=== PATIENT | male | born 1955 | race Two or more races ===

== ENCOUNTER 2023-06-14 18:49 | Outpatient (REF) | payer MEDICARE, SELFPAY | END 2023-06-14 18:50 | disposition home or self-care (01) | LOC: HO.HHCLNP 18:49 | PROVIDERS: Visit Provider Family Medicine | DX: R31.0 Gross hematuria (principal) | CPT/HCPCS: 87086 ==

== ENCOUNTER 2023-08-03 14:49 | Outpatient (REF) | payer MEDICARE, SELFPAY ==
--- NOTE | ~2023-08-03 | US_ITS ---
EXAMINATION: US RETROPERITONEAL COMPLETE (RENAL) CLINICAL INFORMATION: Gross hematuria. COMPARISON: None available. TECHNIQUE: Real-time imaging of the kidneys and bladder. FINDINGS: RIGHT KIDNEY: 10.7 x 5.8 x 6.0 cm (SAG x AP x TRV). The kidney is normal in size, contour, and echogenicity. Renal cortical thickness is normal. No calculi or focal parenchymal lesions. No hydronephrosis. LEFT KIDNEY: 11.1 x 6.0 x 6.2 cm (SAG x AP x TRV). The kidney is normal in size, contour, and echogenicity. Renal cortical thickness is normal. No renal calculi or focal parenchymal lesions. Upper pole caliectasis. BLADDER: Multiple bladder diverticula. Prevoid volume is 445 mL. Post void residual is 239 mL.. Prostate: 3.9 x 3.3 x 4.8 cm with multiple calcifications. US/US retroperitoneal comp IMPRESSION: 1. Upper pole caliectasis in the left kidney. 2. Multiple bladder diverticula. 3. Large post void residual.
== END 2023-08-03 14:50 | disposition home or self-care (01) ==
LOC: HO.US 14:49
PROVIDERS: PCP Family Medicine; Visit Provider Family Medicine
DX: R31.0 Gross hematuria (principal)
CPT/HCPCS: 76770

== ENCOUNTER 2023-08-09 14:07 | Outpatient (AMB) | payer MEDICARE, SELFPAY ==
--- NOTE | 2023-08-09 14:35 | MHC.OFFVIS ---
Intake Intake Visit Reasons: Gross Hematuria Intake Note: nEW patient presents today to establish treatment for: Gross Hematuria Meds- None Allergies to Antibiotic- No Known Allergies Blood Thinner- None Patient stated he usually urinates normal, however some days he has flare ups/symptoms or urgency, and sometimes he urinate but other times he urinates only a little bit. He stated he is a non smoker. Patient does not take medications, so he stated he does not have a specific pharmacy. 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 Puri. He presents to the office today as a new patient for gross hematuria. He discusses having followed up with his PCP at which time recommendations were made for urology referral for further assessment evaluation. In review of patient's chart it appears PCP performed POC UA in office in noted positive for blood, leukocytes, and nitrates. He was treated with antibiotic therapy however urine culture returned negative. He reports gross hematuria has since subsided. He reports a previous history of nephrolithiasis approximately 16 years ago. However never requiring surgical intervention. When asked he does report urinary hesitancy he otherwise denies urinary urgency, urinary frequency, incontinence, nocturia, hematuria, dysuria, foul smelling urine, changes to urinary stream, flank pain, fever, and or chills. When asked he denies any previous history of smoking and or known workplace chemical exposure. In office urinalysis results reviewed with the patient today. 1+ microscopic hematuria noted otherwise within normal limits. Discussed reasons for blood in the urine may include but are not limited to kidney stones, cancer in the urinary tract, BPH, kidney stone disease or inflammatory conditions of the urinary tract. Discussed further workup of gross hematuria to include CT urogram, urine cytology, and in office cystoscopy. [facility] Social History (Updated 08/09/23 @ 14:54 by Aimee Cole CMA) Alcohol intake: never Patient Tobacco Use Status: Never used Tobacco Review of Systems Const All systems reviewed & are unremarkable except as noted in HPI and below Physical Exam Const General: cooperative, healthy appearing, comfortable, no acute distress, well developed, alert and awake Orientation/consciousness: patient oriented x3 Limitations: no limitations HEENT Head: Yes normal to inspection, Yes normocephalic and Yes atraumatic Ears: hearing grossly normal bilaterally Eyes General: appearance normal, both eyes and all related structures Neck Neck: Yes normal visual inspection and Yes trachea midline Chest Chest palpation & inspection: normal inspection of the chest Resp Effort & Inspection: normal respiratory effort and able to speak in complete sentences Cardio Rate: regular rate GI Inspection: Yes normal to inspection General: Yes no CVA tenderness Back/Spine/Pelvis Back: no CVA tenderness Skin General skin exam: no rashes or lesions noted Neuro General: patient oriented x3 Extrem General: Yes normal to inspection Psych Appearance: grossly normal and well kempt Mental Status: mental status grossly normal Speech and movement: Normal speech and movement present and Clear speech present Affect: normal affect Attitude: cooperative Thought process: Normal thought process present Thought content: Normal thought content present Insight: Fair insight present (Psych) Judgement: Fair judgement present (Psych) Results AMB Urinalysis, Automated UA Leukoctes 0 Geo/uL Last Edit by Aimee Cole [facility] on 08/09/23 14:51 UA Nitrite Negative Last Edit by Aimee Cole [facility] on 08/09/23 14:51 UA Urobilinogen 0.2 mg/dL Last Edit by Aimee Cole [facility] on 08/09/23 14:51 UA Protein 0 mg/dL Last Edit by Aimee Cole [facility] on 08/09/23 14:51 UA pH 6.0 Last Edit by Aimee Cole [facility] on 08/09/23 14:51 UA Blood 25 Yoel/uL Last Edit by Aimee Cole [facility] on 08/09/23 14:51 UA Specific Morgan 1.015 Last Edit by Aimee Cole [facility] on 08/09/23 14:51 UA Ketone Negative Last Edit by Aimee Cole [facility] on 08/09/23 14:51 UA Bilirubin 0 mg/dL Last Edit by Aimee Cole [facility] on 08/09/23 14:51 UA Glucose 0 mg/dL Last Edit by Aimee Cole [facility] on 08/09/23 14:51 Results Reviewed Results Reviewed: Laboratory Last Values Urine pH (Auto) 6.0 08/09/23 14:50 Specific Morgan (Auto) 1.015 08/09/23 14:50 Urine Protein (Auto) 0 mg/dL 08/09/23 14:50 Glucose (UA)(Auto) 0 mg/dL 08/09/23 14:50 Urine Ketones (Auto) Negative 08/09/23 14:50 Urine Blood (Auto) 25 Yoel/uL 08/09/23 14:50 Urine Nitrite (Auto) Negative 08/09/23 14:50 Urine Bilirubin (Auto) 0 mg/dL 08/09/23 14:50 Urine Urobilinogen (Auto) 0.2 mg/dL 08/09/23 14:50 Leukocyte Esterase (Auto) 0 Geo/uL 08/09/23 14:50 Assessment & Plan Assessment & Plan (1) Gross hematuria: Code(s): R31.0 - Gross hematuria Plan In office urinalysis results reviewed with the patient today; as noted above; will send for urine cytology. Discussed at length potential causes of gross hematuria. Discussed further workup with imaging, cytology, and in office cystoscopy versus surveillance monitoring; risks and benefits of these interventions were discussed at length. Will obtain CT urogram for further assessment evaluation. BUN and creatinine ordered for imaging. Discussed trial of medication for urinary hesitancy; however patient declines at this time. Discussed lifestyle modifications such as sitting to void to assist with relaxing pelvis/bladder and potentially aiding in improvement in urinary hesitancy. Discussed, educated, and stressed the importance of drinking plenty of water daily. Follow-up in office cystoscopy with imaging and labs to be completed prior; or sooner with any issues, concerns, and or questions. Orders: Orders AMB Urinalysis Automated Today R33.9 - Retention of urine, unspecified Urine Cytology Today R31.0 - Gross hematuria Blood Urea Nitrogen Today R31.0 - Gross hematuria Creatinine Today R31.0 - Gross hematuria Prostate Specific Antigen Today N40.1 - Benign prostatic hyperplasia with lower urinary tract symptoms, R39.11 - Hesitancy of micturition CT urogram Today R31.0 - Gross hematuria Patient Instructions: The patient had an opportunity to ask questions regarding the treatment plan. All questions were answered. Physical exam, labs, and imaging were discussed and reviewed in detail. As well as risks, benefits, and discussion of treatment choices. No major barriers to understanding were identified. The patient expressed understanding and agreement with the above treatment plan. The patient was made aware they should contact our office by phone for worsening of their current condition, the appearance of new symptoms, or with any questions or concerns. Compliance is encouraged with any medications and follow up testing that is ordered. It is a privilege to be allowed the opportunity to participate in? your urological care.? Again, if you have any questions or concerns If you have any questions or concerns please do not hesitate to contact me. The office is [phone]. This note is constructed using voice recognition software. While every effort has been made to ensure accuracy instructional technology coach errors may have been included. Yours sincerely, DIGNA Harding Coding Level of Care Code New Pt Level 4 (25837) Diagnoses Gross hematuria R31.0 Time Spent (min) 35
== END 2023-08-09 15:17 | disposition home or self-care (01) ==
PROVIDERS: PCP Family Medicine; Visit Provider Nurse Practitioner Family
DX: R31.0 Gross hematuria (principal)
CPT/HCPCS: 99204

== ENCOUNTER 2023-08-09 14:07 | Outpatient (REF) | payer MEDICARE, SELFPAY ==
[2023-08-09 17:08] LABS: Urine Cytology See Pathology rpt
== END 2023-08-09 14:08 | disposition home or self-care (01) ==
LOC: HO.LAB 14:07
PROVIDERS: PCP Family Medicine; Visit Provider Nurse Practitioner Family
DX: R31.0 Gross hematuria (principal)
CPT/HCPCS: 81003; 88112; 99202

== ENCOUNTER 2023-08-31 12:00 | Emergency (ER) | payer MEDICARE, SELFPAY ==
--- NOTE | ~2023-08-31 | CT_ITS ---
EXAMINATION: CTA OF THE HEAD AND NECK CLINICAL INFORMATION: Headache and blurred vision. COMPARISON: None available. TECHNIQUE: Test bolus sequences followed by intravenous administration 70 mL of Omnipaque 350. Helical imaging was performed in the axial plane from the mediastinum to the skull vertex. Delayed postcontrast imaging of the head was also performed. The data was processed at the special procedures technologist's workstation for generation of MIP sequences. Three-dimensional volume rendered reformatted images were also generated at an offline 3-D workstation. Stenoses are assessed in accordance with NASCET criteria unless otherwise indicated. This CT examination was performed using dose optimization techniques as appropriate, variously including the following: *Automated exposure control *Adjustment of mA and/or kV according to patient size (this includes techniques or standardized protocols for targeted exams where dose is matched to indication/reason for exam; i.e. extremities or head) *Use of iterative reconstruction technique DLP: 2102 mGy-cm. FINDINGS: CT head: There is no evidence of acute intracranial hemorrhage or territorial infarction. There is no loss of mccallum to white matter differentiation. No abnormal mass effect or midline shift is seen. No extra-axial fluid collections are identified. There is no abnormal enhancement. The ventricles are normal in size. There is no abnormal attenuation within the brain parenchyma. The osseous structures and soft tissues are normal. The mastoid air cells and visualized portions of the paranasal sinuses are well aerated. CTA neck: The imaged aortic arch and origins of the great vessels are widely patent. The common carotid arteries are patent with very mild atheromatous changes. The carotid bifurcations are relatively normal. The cervical internal carotid arteries are normal. The vertebral arteries opacify normally and are of normal caliber. There is a large 1.3 x 1.6 cm calculus surrounded by mild amount of fluid attenuation in the chronically atrophied left submandibular gland. Surrounding fluid density may reflect chronic ductal obstructive changes. No surrounding soft tissue inflammatory changes are visible. No cervical adenopathy visible. The imaged portions of the lungs are clear with mild emphysematous changes. Moderate to severe degenerative disc disease evident at the C6-C7 level. Multilevel facet arthropathy present. Mild rightward curvature of the cervical spine noted. There are severe degenerative changes of the temporomandibular joints. A small loose body is also visible posterior to the condylar head in the right mandibular fossa. CTA head: The intradural vertebral arteries and basilar artery are normal. The posterior cerebral arteries are widely patent. The internal carotid arteries are of normal caliber. The VIVIENNE and MCA vascular complexes bilaterally are normal. The venous sinuses opacify normally. CT/CT angio head neck IMPRESSION: No hemodynamically significant stenosis or vascular occlusion in the cervical or intracranial vessels at the level of the [place] of [place]. Large 1.3 x 1.6 cm calculus with suspected chronic ductal dilatation in the atrophied left submandibular gland, without surrounding acute inflammatory changes. 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 Imaging findings reported to Dr. Baeza at 2:15 PM on 08/31/2023.
--- NOTE | 2023-08-31 12:05 | ED.HA ---
HPI - Headache General Chief Complaint: Stroke Stated Complaint: HEADACHE BLURRED VISION Time Seen by Provider: 08/31/23 12:04 Source: patient Mode of arrival: EMS History of Present Illness HPI Narrative: 68-year-old male who is not on any prescription medications, no blood thinners, no recent falls, no recent MVC who had acute onset of headache and upper abdominal discomfort with blurred vision that started at 01:50 this morning and patient states it woke him up from sleep. Patient denies any gait instability and actually drove himself to 2 different locations for evaluation. Patient also describes some nausea and vomiting. Related Data Previous Rx's ?Medication ?Instructions ?Recorded hydrochlorothiazide 25 mg tablet 25 mg PO DAILY #30 tabs 08/31/23 Allergies Allergy/AdvReac Type Severity Reaction Status Date / Time NKDA Allergy Unknown Unknown Uncoded 08/31/23 12:13 Review of Systems Review of Systems: Pertinent positives and negatives as stated in HPI PMFSH Past Medical History Source: nursing notes reviewed Social History Social History Alcohol intake: never Patient Tobacco Use Status: Never used Tobacco Advance Directives: No Advance Directives Information Provided: Yes Do you have a plan to hurt others: No Plan Physical Exam Vital Signs: Vital Signs: Last Vital Signs Temp 98 F 08/31/23 14:09 Pulse 58 08/31/23 14:09 Resp 18 08/31/23 14:09 BP 167/89 H 08/31/23 13:23 Pulse Ox 99 08/31/23 13:23 O2 Del Method Room Air 08/31/23 14:09 BMI result Body Mass Index 24.0 VITAL SIGNS: Reviewed. GENERAL: Well developed, well nourished, in no acute distress. HEAD: Normocephalic/atraumatic EYES: PERRLA, EOMI EARS: Ext canals without abnormality NOSE: Nares patent bilateral OROPHARYNX: no oral lesions noted, posterior pharynx clear NECK: Supple, no adenopathy LUNGS: Normal breath sounds. No adventitious sounds or accessory muscle use. SpO2<100> CARDIOVASCULAR: Regular rate and rhythm without noted murmurs ABDOMEN: Soft, non-tender, non-distended with bowel sounds. MUSCULOSKELETAL: No tenderness, deformities, or effusions noted on gross inspection. EXTREMITIES: No cyanosis, clubbing or edema. SKIN: Inspection of the skin reveals no rashes NEUROLOGIC: Alert and oriented x 4. Strength and sensation to light touch were grossly intact x 4, no facial asymmetry, no pronator drift, cranial nerves 2-12 are grossly intact. NIH Stroke Scale Internal: Initial- Upon Arrival Level of Consciousness: Alert Level of Consciousness Questions: Answers both questions correctly Level of Consciousness Commands: Performs both tasks correctly Best Gaze: Normal Visual: No visual loss Facial Palsy: Normal Motor Arm (Right): No drift Motor Arm (Left): No drift Motor Leg (Right): No drift Motor Leg (Left): No drift Limb Ataxia: Absent Sensory: Normal Best Language: No aphasia Dysarthia: Normal Extinction and Inattention: No abnormality Score: 0 Medications Administered Discontinued Medications Generic Name Dose Route Start Last Admin Trade Name Freq PRN Reason Stop Dose Admin Acetaminophen 975 mg 08/31/23 12:48 08/31/23 13:20 Acetaminophen 325 Mg Tablet PO 08/31/23 12:49 975 mg ONCE ONE Administration Iohexol 70 ml 08/31/23 12:35 08/31/23 12:36 Iohexol 350 Mg/Ml 100 Ml Infus..Btl IV 08/31/23 12:36 70 ml ONCE ONE Administration Ondansetron HCl 4 mg 08/31/23 12:48 08/31/23 13:20 Ondansetron Hcl 4 Mg/2 Ml Vial IVPUSH 08/31/23 12:49 4 mg ONCE ONE Administration Medical Decision Making Medical Decision Making MDM Narrative: 68-year-old male with history and clinical presentation, DDX: Intracranial hemorrhage, no focal findings to suggest acute stroke, symptoms started at 01:50 so outside the window for TNK, migraine/generalized headache, possible hypertensive urgency, food poisoning (patient states he ate some food that was questionable last night) I reviewed all investigations and hematologic indices are negative for leukocytosis/anemia/thrombocytopenia. Coagulation studies are within normal limits. Chemistry indices do not demonstrate MARISOL/electrolyte or liver enzyme derangements and high sensitivity troponin is undetectable without acute findings on EKG although there is no corresponding EKG for comparison. Patient was offered Zofran and Tylenol in states that he is feeling much better, on ambulation he ambulates with a steady gait, no complaints of dizziness/headache and blurry vision has completely resolved. 1411: Dr. LedbetterReggie melgar Radiology, called with negative findings on CT angio of head and neck. Patient's blood pressure is completely resolved without any intervention medications and reports feeling back at baseline. Patient is otherwise discharged on hydrochlorothiazide 25 mg and instructed to follow-up with his primary care doctor. He is also provided with strict return precautions. Differential Diagnosis Differential Diagnoses: The differential diagnosis associated with the presentation includes Please see the discussion above Admission/Observation Consideration of admission/observation: Escalation of care including admission/observation considered Please see the discussion above Lab Data MDM Lab Attestation statement: I reviewed the patient's lab results. Please see the discussion above 08/31/23 12:21 08/31/23 12:21 Labs: Lab Results 08/31/23 Range/Units 12:21 WBC 9.5 (4.8-10.8) X10*3/uL RBC 4.99 (4.60-5.80) X10*6/uL Hgb 14.8 (14.0-18.0) g/dl Hct 43.8 (42.0-52.0) % MCV 87.8 (80.0-98.0) fL MCH 29.7 (27.0-33.0) pg MCHC 33.8 (31.0-36.0) g/dl RDW 14.2 (11.0-16.0) % Plt Count 212 (160-400) X10*3/uL MPV 10.2 (9.4-12.4) fL Immature Gran % (Auto) 0.2 (0.0-0.4) % Neut % (Auto) 88.8 H (45-73) % Lymph % (Auto) 7.6 L (20-40) % [place] % (Auto) 3.3 (2-11) % Eos % (Auto) 0.0 (0-4) % Baso % (Auto) 0.1 (0-2) % Lymph # (Auto) 0.7 L (1.2-4.9) X10*3/uL [place] # (Auto) 0.3 (0.1-1.2) X10*3/uL Eos # (Auto) 0.0 (0.0-0.4) X10*3/uL Baso # (Auto) 0.0 (0.0-0.2) X10*3/uL Abs Immat Gran (auto) 0.02 (0.00-0.03) X10*3/uL Absolute Neuts (auto) 8.4 H (2.0-8.3) x10*3/uL Absolute Nucleated RBC 0.000 (0.0-0.012) X10*3/uL Nucleated RBC % (auto) 0.0 (0.0-0.2) /100WBC PT 11.5 (11.1-13.3) SEC INR 0.9 (0.9-1.1) Sodium 135 (135-145) mmol/L Potassium 4.8 (3.3-5.1) mmol/L Chloride 102 (96-108) mmol/L Carbon Dioxide 25 (22-29) mmol/L Anion Gap 13 (12-20) BUN 17 H (9-16) mg/dL Creatinine 0.80 (0.5-1.4) mg/dL Estim Creat Clear Calc 87.8 Estimated GFR > 60 Random Glucose 121 H (60-115) mg/dL Calcium 9.5 (8.4-10.2) mg/dL Total Bilirubin 0.4 (0.0-1.0) mg/dL AST 21 (5-37) U/L ALT 16 (0-40) U/L Alkaline Phosphatase 80 (39-117) U/L Troponin I High Sens < 2.7 (<3.5-35.0) ng/L Total Protein 8.0 (6.5-8.0) g/dL Albumin 4.3 (3.5-5.0) g/dL Independent Interpretation I performed an independent interpretation of an: EKG Interpretation: Sinus rhythm, bradycardia at 56, no STEMI, however findings in lateral leads consistent with LVH, no EKG for comparison, [place]/QRS/QTC is within normal limits. Radiology Impression Discussion of test interpretation with radiology: I have reviewed the radiologist's reading. Radiologist Impression: Please see the discussion above Critical Care Time Critical Care Time Critical Care Time: Yes Total Critical Care Time: 30 Attestation: I personally attest to this time spent taking care of the patient. Discharge Plan Discharge Clinical Impression: Hypertensive crisis Patient Disposition: Home, Self-Care Instructions: Hypertensive Crisis (ED) Additional Instructions: Please return to the emergency room should you experience any return of your headache/blurred vision, please take the medication as prescribed and follow-up with your primary care doctor in the next 1-2 days. Prescriptions: New hydrochlorothiazide 25 mg tablet 25 mg PO DAILY Qty: 30 0RF Referrals: Jarrett Puri MD [Primary Care Provider] - Print Language: Uzbek
--- NOTE | 2023-08-31 12:08 | ECG_ITS ---
Test Reason : htn Blood Pressure : / mmHG Vent. Rate : 056 BPM Atrial Rate : 056 BPM P-R Int : 150 ms QRS Dur : 098 ms QT Int : 440 ms P-R-T Axes : -84 -19 034 degrees QTc Int : 424 ms Unusual P axis, possible ectopic atrial bradycardia Moderate voltage criteria for LVH, may be normal variant ( R in aVL , [place] product ) Abnormal ECG No previous ECGs available Referred By: Acacia Baeza Electronically Signed By:RE MURILLO
[2023-08-31 12:10] VITALS: BP 178/98; BP 183/87; PULSE 56; PULSE 58; RESP 18; TEMP 36.7; O2SAT 100; O2SAT 98; BMI 24.0
--- NOTE | 2023-08-31 12:24 | PC.NURSE ---
stroke alert called by EMS. pt keyla from [facility] d/t BEAN/dizziness/blurred vision that started around 0130 this morning. pt c/o 10/10 headache at this time. denies feeling dizzy/lightheaded/blurry vision at this time. pt conversating w/ eyes closed as he states that his eyes are sensitive to light. pt hypertensive at urgent care/and for EMS. pt remains hypertensive in ED but trending downward. denies chest pain/palpitations. pt verbalizes no medications for BP. 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 HR 55-60bpm. 20gIV placed in the right AC - labs obtained/sent to lab. pt going to CT at this time. no sob/wob noted. respirations even and unlabored. will resume care of pt when he returns.
[2023-08-31 12:25] LABS: MANUAL DIFF FLAG NO
[2023-08-31 12:26] LABS: Basophils Percent Auto 0.1 % (0-2); Hematocrit 43.8 % (42.0-52.0); Hemoglobin 14.8 g/dl (14.0-18.0); Imm Gran Abs Auto 0.02 X10*3/uL (0.00-0.03); Imm Gran Pct Auto 0.2 % (0.0-0.4); Lymphocytes Absolute Auto 0.7 X10*3/uL (1.2-4.9); Lymphocytes Percent Auto 7.6 % (20-40); Mean Corpuscular HGB Conc 33.8 g/dl (31.0-36.0); Mean Corpuscular Hemoglobin 29.7 pg (27.0-33.0); Mean Corpuscular Volume 87.8 fL (80.0-98.0); Mean Platelet Volume 10.2 fL (9.4-12.4); Monocytes Absolute Auto 0.3 X10*3/uL (0.1-1.2); Monocytes Percent Auto 3.3 % (2-11); Neutrophils Absolute Auto 8.4 x10*3/uL (2.0-8.3); Neutrophils Percent Auto 88.8 % (45-73); Platelet Count 212 X10*3/uL (160-400); Red Blood Count 4.99 X10*6/uL (4.60-5.80); Red Cell Distribution Width 14.2 % (11.0-16.0); White Blood Count 9.5 X10*3/uL (4.8-10.8)
[2023-08-31 12:34] LABS: INTERNATIONAL NORM RATIO 0.9 (0.9-1.1); Prothrombin Time 11.5 SEC (11.1-13.3)
[2023-08-31] MEDS: iohexoL 350 MG/ML 100 ML INFUS..BTL 70 ML IV (12:36)
[2023-08-31 12:40] LABS: Alanine Aminotransferase 16 U/L (0-40); Albumin Level 4.3 g/dL (3.5-5.0); Alkaline Phosphatase 80 U/L (39-117); Anion Gap 13 (12-20); Aspartate Amino Transferase 21 U/L (5-37); Bilirubin Total 0.4 mg/dL (0.0-1.0); Blood Urea Nitrogen 17 mg/dL (9-16); Calcium 9.5 mg/dL (8.4-10.2); Carbon Dioxide 25 mmol/L (22-29); Chloride 102 mmol/L (96-108); Creatinine Clr Calc Pharmacy 87.8; Estimated Glomerular Filt Rate > 60; Glucose Random 121 mg/dL (60-115); Potassium 4.8 mmol/L (3.3-5.1); Sodium 135 mmol/L (135-145)
[2023-08-31 12:49] LABS: Troponin-I High Sensitivity < 2.7 ng/L (<3.5-35.0)
[2023-08-31] MEDS: ondansetron HCL 4 MG/2 ML VIAL IVPUSH (13:20)
[2023-08-31] MEDS: Acetaminophen 325 MG TABLET 975 MG PO (13:20)
[2023-08-31 13:23] VITALS: BP 167/89; PULSE 55; RESP 14; O2SAT 99
--- NOTE | 2023-08-31 13:23 | PC.NURSE ---
vss and up to date. nsr/sinus juan alberto on the monitor. pt remains hypertensive but continues to trend downward. pt medicated per provider order. effectiveness pending. CT results still pending at this time. plan of care ongoing.
[2023-08-31 14:09] VITALS: PULSE 58; RESP 18; TEMP 36.6
[2023-08-31 14:39] LABS: Appearance Urine Clear; Color Urine Yellow; Glucose Urine UA Negative (Negative); Leukocyte Esterase Urine Negative (Negative); Nitrite Urine Negative (Negative); Specific Gravity - Urine >= 1.030 (1.005-1.025); UMIC TRIGGER UACC YES; Urine Blood Trace (Negative); Urine Ketones 15 mg/dL (Negative); Urine Protein Trace mg/dL (Neg-Trace)
[2023-08-31 14:41] LABS: Bacteria Urine None Seen (None Seen); Hyaline Casts Urine 0-2 /LPF (0-2); Squamous Epithelial Cell Urine 0-2 /HPF (0-2); WBC Urine 0-5 /HPF (0-5)
[2023-08-31 15:07] VITALS: BP 154/87; PULSE 61; RESP 16; O2SAT 96
[2023-08-31] MEDS: hydroCHLOROthiazide 25 MG TABLET PO (15:26)
[2023-08-31 15:40] VITALS: BP 154/87; PULSE 61; RESP 16; TEMP 36.6; O2SAT 96
--- NOTE | 2023-08-31 15:40 | PC.NURSE ---
pt medicated per provider order. pt provided w/ d/c paperwork.
== END 2023-08-31 15:40 | disposition home or self-care (01) ==
PROVIDERS: Emergency Provider Student in an Organized Health Care Education/Training Program; PCP Family Medicine
DX: I16.9 Hypertensive crisis, unspecified (principal)
CPT/HCPCS: 36415; 70496; 70498; 80053; 81001; 84484; 85025; 85610; 93005; 96374; 99284; J2405; Q9967

== ENCOUNTER → 2023-08-31 12:08 | Outpatient (BNV) | payer MEDICARE, SELFPAY | PROVIDERS: Emergency Provider Student in an Organized Health Care Education/Training Program; PCP Family Medicine; Visit Provider Internal Medicine | DX: R94.31 Abnormal electrocardiogram [ECG] [EKG] (principal) | CPT/HCPCS: 93010 ==

== ENCOUNTER → 2023-09-13 10:00 | Outpatient (REF) | payer MEDICARE, SELFPAY ==
--- NOTE | 2023-09-13 10:03 | CA_ITS ---
Transthoracic Echocardiogram Patient (Last, First, Middle): Gene Zuluaga, Gender: Male Date of : 1955 Age: 68 Procedure Date: 09/13/2023 Procedure Type: Transthoracic Echocardiogram Location: OP Height: 172.72 cm Weight: 67.13 kg BSA: 1.80 m2 Heart Rate: bpm BP: 140 / 84 mmHg Real Estate Manager: REJI Referring MD: Vicky Jean MD Worm Sorter: Mars Forbes MD Symptoms: R06.01 MURMUR Study Quality: Adequate ECG Rhythm: Sinus Conclusions: - 1. Normal LV ejection fraction of 65-70% with impaired relaxation filling pattern and elevated filling pressures 2. [id number]-[id number] aortic regurgitation mild aortic stenosis 3. Normal RV systolic pressure 4. Upper limits of normal ascending aortic size 5. No pericardial effusion Findings Left Ventricle The visually estimated ejection fraction is between 65-70%. Spectral Doppler is indicative of an impaired relaxation filling pattern. Elevated filling pressures. E/E prime ratio is >15, consistent with elevated filling pressures. Right Ventricle Normal right ventricular cavity size and systolic function. Atria The left atrium is normal in size. There is no evidence of interatrial shunt. The right atrium is normal in size. Aortic Valve There is mild calcification of the aortic valve. There is mild aortic valve stenosis. There is mild to moderate aortic valve regurgitation. Mitral Valve There is mild anterior and posterior mitral leaflet thickening. There is trace mitral valve regurgitation. There is no mitral valve stenosis. Tricuspid Valve Normal tricuspid valve structure. There is trace tricuspid valve regurgitation. The right ventricular systolic pressure is normal. The right ventricular systolic pressure is 15 mmHg. Normal right atrial pressure. There is no evidence of pulmonary hypertension. Great Vessels All visible segments of the aorta are normal in size. The pulmonary artery was not well visualized. There is no evidence of plaque in the aorta. Venous The inferior vena cava is normal in size and collapses greater than 50% with inspiration. Pericardium/Pleural There is no evidence of pericardial effusion. Prior Study Comparison No prior study available for comparison. Measurements 2D Linear Measurements IVSd: 1.04 0.6-0.9/0.6-1.0 cm LVIDd: 4.86 3.9-5.3/4.2-5.9 cm LVIDd Index: 2.70 2.4-3.2/2.2-3.1 cm/m2 LVIDs: 3.11 2.0-3.6 cm LVPWd: 1.14 0.7-1.1 cm LA Diam: 3.40 2.7-3.8/3.0-4.0 cm LAIDs Index: 1.89 1.5-2.3 cm/m2 LV Mass: 243.49 67-162/88-224 g LV Mass Index: 135.27 43-95/49-115 g/m2 LVOT Diam: 2.10 3.0+(-)1.3 cm 2D Systolic Function EF 4C: 68.50 >55% EF 2C: 70.50 >55% EF BiP: 69.60 >55% Mitral Valve MV Pk E: 0.90 MV PK A: 0.89 MV Decel Time: 377.00 E/A: 1.00 E'Lateral: 5.33 E'Medial: 4.57 E/E' Med: 19.80 E/E' Lat: 17.00 PHT: 110.00 MVA PHT: 2.00 Decel [place]: 2.40 Aortic Valve AoV Pk Arslan: 2.47 AoV Mn Arslan: 1.76 AoV VTI: 0.58 AoV Pk Grad: 24.00 Aov Mn Grad: 14.00 JEFF Cont.VTI: 1.51 AI Pk Arslan: 4.85 AI VTI: 2.89 AI [place]: 2.13 AI Alias Arslan: 0.40 AI RV - PISA: 23.00 ERO - PISA: 8.00 LVOT LVOT Pk Arslan: 1.01 LVOT Mn Arslan: 0.73 LVOT VTI: 0.25 LVOT Pk Grad: 4.00 LVOT Mn Grad: 2.00 LVOT Diam: 2.10 LVOT Area: 3.46 Diastolic Function MV Pk E: 0.90 MV Pk A: 0.89 E/A: 1.00 E'Medial: 4.57 E/E' Med: 19.80 E' Laterial: 5.33 E/E' Lat: 17.00 Right Ventricle TAPSE (mm): 20.70 TVS' Arslan: 16.00 Tricuspid Valve TR Pk Arslan: 1.70 TR Pk Grad: 12.00 RA Press: 3.00 RVSP: 15.00 Great Vessels Aorta Sinus of Valsalva: 3.99 2.0-3.5 cm Ao Asc: 3.60 2.1-3.4 cm Updated in Other Vendor System with Status of Final Mars Forbes MD electronically signed on 09/13/2023 6:35:47 PM with status of Final
== END ==
LOC: HO.CARD 10:00
PROVIDERS: PCP Family Medicine; Visit Provider Family Medicine
DX: R01.1 Cardiac murmur, unspecified (principal)
CPT/HCPCS: 93306

== ENCOUNTER → 2023-09-13 10:03 | Outpatient (BNV) | payer MEDICARE, SELFPAY | PROVIDERS: PCP Family Medicine; Visit Provider Internal Medicine Cardiovascular Disease | DX: I35.2 Nonrheumatic aortic (valve) stenosis with insufficiency (principal) | CPT/HCPCS: 93306 ==

== ENCOUNTER 2023-10-05 07:29 | Outpatient (REF) | payer MEDICARE, SELFPAY ==
--- NOTE | ~2023-10-05 | CT_ITS ---
EXAMINATION: CT ABDOMEN AND PELVIS WITHOUT AND WITH CONTRAST CLINICAL INFORMATION: Gross hematuria COMPARISON: Ultrasound from 08/03/2019 TECHNIQUE: Noncontrast CT of the abdomen and pelvis is performed followed by split bolus contrast-enhanced images using 85 mL Omnipaque 350 contrast.? Postcontrast imaging is performed during the combined nephrogram and excretion phase. Sagittal and coronal reformatted images were obtained on the technologist's workstation for both the precontrast and postcontrast phases. This CT examination was performed using dose optimization techniques as appropriate, variously including the following: *Automated exposure control *Adjustment of mA and/or kV according to patient size (this includes techniques or standardized protocols for targeted exams where dose is matched to indication/reason for exam; i.e. extremities or head) *Use of iterative reconstruction technique DLP: 490 mGy-cm FINDINGS: LUNG BASES: The visualized lung bases are unremarkable. LIVER, GALLBLADDER, AND BILIARY TREE: The liver is normal in size, shape, and attenuation. No focal hepatic lesion or biliary ductal dilatation is present. The gallbladder is unremarkable with no evidence of radiopaque gallstones, gallbladder wall thickening, or obvious pericholecystic inflammatory changes. PANCREAS: Unremarkable. SPLEEN: Unremarkable. ADRENAL GLANDS: Unremarkable. KIDNEYS AND URETERS: The kidneys are normal in size, shape, and attenuation. No hydronephrosis, hydroureter, or calculi seen. No perinephric stranding. BLADDER: Urinary bladder revealed large diverticulum on the left. Noncontrast urinary bladder revealed small small no masses or calcifications. Following contrast administration there is no additional findings. GASTROINTESTINAL TRACT: The small and large bowel are unremarkable. The appendix is unremarkable. ABDOMINAL WALL: No significant hernia is appreciated. LYMPH NODES: Normal. VASCULAR: Unremarkable. PELVIC VISCERA: There is prostatomegaly with ill-defined calcifications OSSEUS STRUCTURES: There are mild degenerative changes at the level of L4-L5 and L5-S1 CT/CT urogram IMPRESSION: 1. 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 2. No evidence of nephrolithiasis or masses. 3. Mild prostatomegaly. 4. Mild degenerative changes in lower lumbar spine.
[2023-10-05] MEDS: iohexoL 350 MG/ML 100 ML INFUS..BTL 85 ML IV (09:06)
[2023-10-08 07:41] LABS: Creatinine POC 0.9 mg/dL (0.5-1.4); GFR POC > 60
== END 2023-10-05 07:30 | disposition home or self-care (01) ==
LOC: HO.CT 07:29
PROVIDERS: PCP Family Medicine; Visit Provider Nurse Practitioner Family
DX: R31.0 Gross hematuria (principal)
CPT/HCPCS: 74178; 82565; Q9967

== ENCOUNTER 2023-10-26 13:45 | Outpatient (AMB) | payer MEDICARE, SELFPAY ==
--- NOTE | 2023-10-26 13:51 | A.OFFVIS_ITS ---
Intake Visit Reasons: cytso/CT/LABS Intake Note: Patient is Present for Cystoscopy Urology Med: None Antibiotic Allergy: None Blood Thinner: None URO- G Disposable Cystoscope lot: exp: Allergies NKDA Allergy (Unknown, Uncoded 08/31/23 12:13) Unknown HPI Comments Details: Gene is a pleasant male. He is a patient of Dr. Puri. He has seen for the following urologic conditions - gross hematuria Here for cystoscopy and imaging follow-up Enlarged median lobe Grade 2 trabeculation Trial alpha-gilberto Does report variable weakness of stream May benefit from prostate procedure in future Gross hematuria Noted to be positive blood and nitrites in PCP office Had been treated with antibiotic therapy Reports no gross hematuria since Prior history of stones Does report lower urinary tract symptoms with hesitancy consistent with storage symptoms Initial assessment in office 1+ hematuria UA CT urogram - 10/21 NAD, large prostate with calcifications PFSH Social History Alcohol intake: never Patient Tobacco Use Status: Never used Tobacco Review of Systems Const Denies chills and Denies fever(s) Card Reports no additional complaints and Denies syncope Resp Denies cough GI Denies abdominal pain and Denies heartburn Reports as per HPI and Denies change in libido Neuro Denies syncope Psych Denies change in libido Endo Denies change in libido Physical Exam Const General: cooperative, healthy appearing, comfortable and no acute distress Orientation/consciousness: patient oriented x3 HEENT Face and sinus: Yes normal facial exam Mouth: moist mucous membranes Neck Neck: Yes normal visual inspection, Yes full ROM and Yes trachea midline Chest Chest palpation & inspection: normal inspection of the chest Resp Effort & Inspection: normal respiratory effort, able to speak in complete sentences and no respiratory distress GI Inspection: Yes normal to inspection Back/Spine/Pelvis Cervical Spine: normal cervical lordosis Thoracic/Lumbar Spine: thoracic and lumbar spine normal to inspection Skin General skin exam: no rashes or lesions noted Neuro General: patient oriented x3, gait normal, tone normal and moves all extremities Extrem General: Yes normal to inspection and Yes capillary refill normal Office Procedures Cystoscopy Consent Discussed risk and benefit or proposed procedure with the patient. Information consent for procedure given to the patient. Discussed technical aspects, risks, benefits and alternatives in full. Addressed all of the patient's questions and concerns regarding the procedure. The patient demonstrated knowledge and understanding. They wish to proceed with this procedure. Preparation The patient was prepped in the usual manner. A city magistrate was present and in the room. Genitalia was prepped with betadine solution in a sterile manner. Lidocaine Jelly 2% was placed into the urethra and 16Fr flexible Olympus cystoscope was inserted into the meatus after adequate lubrication. Procedure Cystoscopy performed using a disposable Urovue digital 16 Portuguese cystoscope. Meatus circumcised Urethra anterior and posterior urethra normal Prostatic Urethra enlarged median lobe with injected mucosa Bladder examination with retroflexion of cystoscope Bladder Orifices normal shape and position Bladder Capacity normal Trabeculations grade 2 Cellule Formation yes Diverticulum Formation - Mucosal Erythema - Bladder Tumor - [id number] DISPOSABLE SCOPE URO-G FLEXIBLE SCOPE Procedure code (CPT) selection complete Office Meds lidocaine HCl 2 % mucosal jelly in applicator Performing Provider: Gerardo Pedersen MD Performing Location: [facility] [place] [facility] Administered by: Manolo Espinal LPN on 10/26/23 13:59 Dose Route Admin Location Dispensed Lot Number Expiration Date ND Branch Associate Teller 10 mL intra-urethral 10 mL nitrofurantoin monohydrate/macrocrystals 100 mg capsule Performing Provider: Gerardo Pedersen MD Performing Location: [facility] [place] [facility] Administered by: Manolo Espinal LPN on 10/26/23 13:59 Dose Route Admin Location Dispensed Lot Number Expiration Date NDC Branch Associate Teller 100 mg PO 1 cap naproxen 500 mg tablet Performing Provider: Gerardo Pedersen MD Performing Location: [facility] [place] [facility] Administered by: Manolo Espinal LPN on 10/26/23 13:59 Dose Route Admin Location Dispensed Lot Number Expiration Date NDC Branch Associate Teller 500 mg PO 1 tab Results AMB Urinalysis, Automated UA Leukoctes 0 Geo/uL Last Edit by MARCEL Gomez on 10/26/23 14:01 UA Nitrite Negative Last Edit by MARCEL Gomez on 10/26/23 14:01 UA Urobilinogen 0.2 mg/dL Last Edit by MARCEL Gomez on 10/26/23 14:0 1 UA Protein 15 mg/dL Last Edit by MARCEL Gomez on 10/26/23 14:01 UA pH 5.0 Last Edit by MARCEL Gomez on 10/26/23 14:01 UA Blood 0 Yoel/uL Last Edit by Margaux Davenport RMA on 10/26/23 14:01 UA Specific [place] 1.030 Last Edit by Margaux Davenport RMA on 10/26/23 14: 01 UA Ketone Positive Last Edit by Margaux Davenport RMA on 10/26/23 14:01 UA Bilirubin 1 mg/dL Last Edit by Margaux Davenport RMA on 10/26/23 14:01 UA Glucose 0 mg/dL Last Edit by Margaux Davenport RMA on 10/26/23 14:01 Results Reviewed Results Reviewed: Laboratory Last Values Urine pH (Auto) 5.0 10/26/23 13:59 Specific [place] (Auto) 1.030 10/26/23 13:59 Urine Protein (Auto) 15 mg/dL 10/26/23 13:59 Glucose (UA)(Auto) 0 mg/dL 10/26/23 13:59 Urine Ketones (Auto) Positive 10/26/23 13:59 Urine Blood (Auto) 0 Yoel/uL 10/26/23 13:59 Urine Nitrite (Auto) Negative 10/26/23 13:59 Urine Bilirubin (Auto) 1 mg/dL 10/26/23 13:59 Urine Urobilinogen (Auto) 0.2 mg/dL 10/26/23 13:59 Leukocyte Esterase (Auto) 0 Geo/uL 10/26/23 13:59 Assessment & Plan Assessment & Plan (1) Urinary hesitancy due to benign prostatic hyperplasia: Code(s): N40.1 - Benign prostatic hyperplasia with lower urinary tract symptoms; R39.11 - Hesitancy of micturition Category: Medical (2) Gross hematuria: Code(s): R31.0 - Gross hematuria Category: Medical Plan Trial of gilberto Three-month follow-up nurse-practitioner PVR Orders: Orders AMB Cystoscopy Today R31.0 - Gross hematuria AMB Urinalysis Automated Today Z13.9 - Encounter for screening, unspecified Medications: New tamsulosin (Flomax) 0.4 mg PO BEDTIME 30 days 30 tabs 2RF N40.1 - Benign prostatic hyperplasia with lower urinary tract symptoms, R39.11 - Hesitancy of micturition Patient Instructions: Imaging studies, laboratory and physical exam results were discussed and reviewed in detail. No major barriers to patient understanding were identified. An opportunity to ask questions regarding the treatment plan was provided. All questions were answered. The patient expressed understanding and agreement with the above treatment plan. The patient is aware they should contact our office by phone for worsening of their current condition or the appearance of new urologic symptoms. Compliance is encouraged with any medications and followup testing that is ordered. It is a privilege to participate in the urologic care of your patient. If you have any questions or concerns regarding treatment for the above conditions, or other urologic issues, please do not hesitate to contact me. The office telephone contact is [phone]. This note is constructed using voice recognition software. While every effort has been made to ensure accuracy hot header operator errors may have been included. Yours sincerely, Dr Gerardo Pedersen MD, [facility] - Urology Providers of Expert, Compassionate Care for the Genitourinary System Coding Level of Care Code Est Pt Level 4 (79555) Complex EM visit Add On G2211 Diagnoses Urinary hesitancy due to benign prostatic hyperplasia N40.1; R39.11 Gross hematuria R31.0 CPT Codes Cystoscopy - CPT: [id number] ([id number])
== END 2023-10-26 14:23 | disposition home or self-care (01) ==
PROVIDERS: PCP Family Medicine; Visit Provider Urology
DX: N40.1 Benign prostatic hyperplasia with lower urinary tract symptoms (principal); R39.11 Hesitancy of micturition; R31.0 Gross hematuria; Z13.9 Encounter for screening, unspecified
CPT/HCPCS: 52000; 99214

== ENCOUNTER → 2023-10-26 13:45 | Outpatient (BNVA) | payer MEDICARE, SELFPAY | PROVIDERS: PCP Family Medicine; Visit Provider Urology | DX: N40.1 Benign prostatic hyperplasia with lower urinary tract symptoms (principal); R31.0 Gross hematuria; R39.11 Hesitancy of micturition | CPT/HCPCS: 52000; 81003; 99212 ==